=== PATIENT | male | born 1975 | race African-American/Black ===

== ENCOUNTER 2017-08-10 12:49 | Emergency (ER) | payer BC ==
[~2017-08-10] VITALS: Ht 190.5 cm; Wt 81.6 kg
[~2017-08-10 12:49] MED LIST: NKM
[2017-08-10 13:00] VITALS: BP 135/78
[2017-08-10] MEDS ORDERED: NS 55ml IV ONE (13:03)
--- NOTE | 2017-08-10 13:10 | Emergency Room Report ---
History of Present Illness General Chief Complaint: Abdominal Pain Source: Patient, Medical Record (CARMEN DANIEL D.O.) Present Illness HPI Patient presents with left upper abdominal pain Reports he has a history of pancreatitis i do remember the patient well He has been doing well as an outpatient however seems to have increased pain over the past 2 days Denies any chest pain or shortness of breath Patient has had increased nausea vomiting Pain is 8/10 denies any fall or trauma (CARMEN DANIEL D.O.) Allergies: Coded Allergies: No Known Allergies (Verified Allergy, Unknown, 06/15/08) Patient History Past Medical History: see triage record Pertinent Family History: none Reviewed Nursing Documentation: PMH: Agreed, PSxH: Agreed (CARMEN DANIEL D.O.) Nursing Documentation-PMH Past Medical History: No History, Except For Hx Cardiac Problems: No Hx Cancer: No Hx Gastrointestinal Problems: Yes - Pancreatitis Hx Neurological Problems: No (CARMEN DANIEL D.O.) Review of Systems All Other Systems: negative except mentioned in HPI (CARMEN DANIEL D.O.) Physical Exam Vital Signs Date Time Temp Pulse Resp B/P (MAP) Pulse Ox O2 Delivery O2 Flow Rate FiO2 08/10/17 12:55 97.9 98 16 155/98 95 Room Air Sp02 EP Interpretation: reviewed, normal General Appearance: mild distress - appears in pain Head: normocephalic, atraumatic Eyes: bilateral eye PERRL, bilateral eye EOMI ENT: normal pharynx, no angioedema Neck: full range of motion, supple Respiratory: chest non-tender, lungs clear Cardiovascular #1: normal peripheral pulses Gastrointestinal: other - Tender diffusely exam is somewhat limited as the patient is uncomfortable, he does have appropriate bowel sounds however and subjectively points to the left upper quadrant, Genitourinary: no CVA tenderness Musculoskeletal: back normal Neurologic: alert, oriented x3, responsive Skin: no rash, warm/dry Lymphatic: no adenopathy (CARMEN DANIEL D.O.) Medical Decision Making Diagnostic Impression: Primary Impression: History of pancreatitis Additional Impression: Abdominal pain ER Course With the history exam and presentation, multiple differentials considered, including but not limited to appendicitis, pancreatitis,gastritis, cholecystitis , diverticulitis (CARMEN DANIEL D.O.) ER Course I received signout from Dr. Daniel 42-year-old, history of chronic pancreatitis, presenting with left upper quadrant abdominal pain Patient states that this is a similar pain to his chronic pancreatitis in the past Abdominal exam significant for mild left upper quadrant tenderness, all other parts of his abdomen is nontender Lipase today is 129 All other labs are unremarkable Patient had received Dilaudid, morphine, Zofran Had developed a mild skin rash in his left chest and left hand Left hand had some mild infiltration, ice is being placed and it is being elevated Will give 25 mg Benadryl and some fluid Patient states that he does not want to be admitted, he just wants to feel better and go home Patient feeling better, will dc home Laboratory Tests Test 08/10/17 13:40 White Blood Count 8.8 K/UL (4.8-10.8) Red Blood Count 5.18 M/UL (4.70-6.10) Hemoglobin 15.5 G/DL (14.2-18.0) Hematocrit 46.6 % (42.0-52.0) Mean Corpuscular Volume 90 FL (80-99) Mean Corpuscular Hemoglobin 30.0 PG (27.0-31.0) Mean Corpuscular Hemoglobin Concent 33.3 G/DL (32.0-36.0) Red Cell Distribution Width 11.9 % (11.6-14.8) Platelet Count 414 K/UL (150-450) Mean Platelet Volume 6.4 FL (6.5-10.1) L Neutrophils (%) (Auto) 71.7 % (45.0-75.0) Lymphocytes (%) (Auto) 21.6 % (20.0-45.0) Monocytes (%) (Auto) 5.1 % (1.0-10.0) Eosinophils (%) (Auto) 0.8 % (0.0-3.0) Basophils (%) (Auto) 0.9 % (0.0-2.0) Sodium Level 140 MMOL/L (136-145) Potassium Level 4.2 MMOL/L (3.5-5.1) Chloride Level 104 MMOL/L (98-107) Carbon Dioxide Level 26 MMOL/L (21-32) Anion Gap 10 mmol/L (5-15) Blood Urea Nitrogen 11 mg/dL (7-18) Creatinine 1.1 MG/DL (0.55-1.30) Estimate Glomerular Filtration Rate > 60 mL/min (>60) Glucose Level 107 MG/DL (74-106) H Calcium Level 9.3 MG/DL (8.5-10.1) Total Bilirubin 0.5 MG/DL (0.2-1.0) Aspartate Amino Transferase (AST) 21 U/L (15-37) Alanine Aminotransferase (ALT) 32 U/L (12-78) Alkaline Phosphatase 57 U/L (46-116) Total Protein 7.9 G/DL (6.4-8.2) Albumin 4.2 G/DL (3.4-5.0) Globulin 3.7 g/dL Albumin/Globulin Ratio 1.1 (1.0-2.7) Lipase 129 U/L (73-393) (Romel Saavedra M.D.) Rhythm Strip Diag. Results EP Interpretation: yes Rate: 77 Rhythm: NSR, no PVC's, no ectopy (CARMEN DANIEL D.O.) Last Vital Signs Date Time Temp Pulse Resp B/P (MAP) Pulse Ox O2 Delivery O2 Flow Rate FiO2 08/10/17 12:55 97.9 98 16 155/98 95 Room Air (CARMEN DANIEL D.O.) Scripts No Active Prescriptions or Reported Meds Referrals: BECKY AMATO (PCP) Patient Instructions: Abdominal Pain, Adult CARMEN DANIEL D.O. Aug 10, 2017 13:10 Romel Saavedra M.D. Aug 10, 2017 14:27
[2017-08-10 13:56] LABS: BASOPHILS % (AUTO) 0.9 % (0.0-2.0); EOSINOPHILS % (AUTO) 0.8 % (0.0-3.0); LYMPHOCYTES % (AUTO) 21.6 % (20.0-45.0); MEAN CORPUSCULAR HGB CONC 33.3 G/DL (32.0-36.0); MEAN CORPUSCULAR VOLUME 90 FL (80-99); MEAN PLATELET VOLUME 6.4 FL (6.5-10.1); MONOCYTES % (AUTO) 5.1 % (1.0-10.0); NEUTROPHILS % (AUTO) 71.7 % (45.0-75.0); PLATELET COUNT 414 K/UL (150-450); RED BLOOD COUNT 5.18 M/UL (4.70-6.10); RED CELL DISTRIBUTION WIDTH 11.9 % (11.6-14.8); WHITE BLOOD COUNT 8.8 K/UL (4.8-10.8)
[2017-08-10 14:06] LABS: ANION GAP 10 mmol/L (5-15); CALCIUM 9.3 MG/DL (8.5-10.1); CARBON DIOXIDE 26 MMOL/L (21-32); CHLORIDE 104 MMOL/L (98-107); CREATININE 1.1 MG/DL (0.55-1.30); GLOMERULAR FILTRATION RATE > 60 mL/min (>60); POTASSIUM 4.2 MMOL/L (3.5-5.1); SODIUM 140 MMOL/L (136-145)
[2017-08-10 14:11] LABS: ALANINE AMINOTRANSFERASE 32 U/L (12-78); ALBUMIN/GLOBULIN RATIO 1.1 (1.0-2.7); ASPARTATE AMINO TRANSFERASE 21 U/L (15-37); LIPASE 129 U/L (73-393); TOTAL PROTEIN 7.9 G/DL (6.4-8.2)
[2017-08-10] MEDS: DiphenhydrAMINE 50mg/ml Inj IVP ONE (14:37)
[2017-08-10 14:47] VITALS: BP 136/67
[2017-08-10] MEDS ORDERED: HYDROmorphone 1mg/ml Carpuject ONE (15:02)
[2017-08-10] MEDS: HYDROmorphone 1 MG, DiphenhydrAMINE 25 MG in NS 55 ML IV ONE (15:15)
[2017-08-10] MEDS: Morphine Sulfate 4mg/ml Inj IVP ONE ×2 (15:35→16:19)
[2017-08-10 16:07] VITALS: BP 136/87
[2017-08-10 16:08] VITALS: BP 136/87
== END 2017-08-10 16:03 | disposition home or self-care (01) ==
LOC: EMR 13:02 → EDBEDREQ 13:41 → EMR 16:03 → CANBEDREQ 16:09
DX: R10.10 Upper abdominal pain, unspecified (principal); Z87.19 Personal history of other diseases of the digestive system
CPT/HCPCS: 36415; 80053; 83690; 85025; 96361; 96374; 96375; 99284; J1170; J1200; J2270; J2405

== ENCOUNTER 2018-09-15 09:02 | Inpatient (IN) | payer BC ==
[~2018-09-15] VITALS: Ht 188 cm; Wt 81.6 kg
[2018-09-15] MEDS ORDERED: Haloperidol Lactate 5 MG in D5W 55 ML IVPB ONE (09:15)
[2018-09-15] MEDS ORDERED: Morphine Sulfate 4mg/ml Inj (IV/IM USE ONLY) IVP ONE ×3 (09:15→13:15)
--- NOTE | 2018-09-15 09:15 | NUR ---
ED Nurse Note: Pt came in from home due to abdominal pain with n/v since this morning around 0400. Active vomitting upon arrival. Pt has hx of Pancreatitis. Emesis was undigested food and phlegm. Last bowel movement was yesterday. Will cont to monitor.
--- NOTE | 2018-09-15 09:22 | NUR ---
ED Nurse Note: Blood drawn and sent to lab. Pt could not produce urine at this time, stated will try again.
--- NOTE | 2018-09-15 09:39 | Emergency Room Report ---
History of Present Illness General Chief Complaint: Abdominal Pain Source: Patient Present Illness HPI Patient is a 43-year-old male who presented after increased abdominal pain. Patient states that he had prior history of chronic pancreatitis. Patient reports having multiple similar episodes in the past. Patient states had previous ERCP. He denies prior history of gallstones. Patient states that he had been having multiple episodes of nausea and vomiting. This is not resolved with hot bath or home medications. He denies any hematemesis or bloody stools. Patient denies any fever. He reports having some episodes of back pain. He states that normally he is followed by Dr. Roque Rosario. Allergies: Coded Allergies: No Known Allergies (Verified Allergy, Unknown, 06/15/08) Patient History Reviewed Nursing Documentation: PMH: Agreed; PSxH: Agreed Nursing Documentation-PM Past Medical History: No History, Except For Hx Cardiac Problems: No Hx Cancer: No Hx Gastrointestinal Problems: Yes - Pancreatitis Hx Neurological Problems: No Physical Exam Vital Signs Date Time Temp Pulse Resp B/P (MAP) Pulse Ox O2 Delivery O2 Flow Rate FiO2 09/15/18 09:11 98.6 63 20 155/93 98 Room Air General Appearance: alert, GCS 15, Chronically Ill Head: normocephalic, atraumatic ENT: hearing grossly normal, normal voice Neck: full range of motion, supple Respiratory: lungs clear, no respiratory distress, speaking full sentences Cardiovascular #1: normal inspection Gastrointestinal: non tender, soft, no mass, other - epigastric tenderness, no mass Musculoskeletal: normal inspection, digits/nails normal, gait/station normal, no calf tenderness Neurologic: normal inspection, alert, oriented x3, responsive, normal gait Psychiatric: normal inspection, judgement/insight normal, mood/affect normal Skin: no rash Medical Decision Making Diagnostic Impression: Primary Impression: Chronic pancreatitis Additional Impression: Abdominal pain ER Course Patient presented for abdominal pain. Differential diagnoses included ischemic bowel, appendicitis, perforated viscus, abdominal aortic aneurysm, inferior myocardial infarction, viral gastroenteritis. because of complexity of patient' s case laboratory testing and imaging studies were ordered. Patient was noted to have prior history of chronic pancreatitis. Patient was noted to have no evidence of elevated lipase at this time. Patient's laboratory testing are essentially unremarkable other than minimally elevated white blood count and mild left shift. Patient does not appear to have a surgical abdomen at this time. Dr. Roque Rosario was contacted for inpatient management and agreed to admit the patient himself rather than Dr. Hernandez. Labs Test 09/15/18 09:30 White Blood Count 11.4 K/UL (4.8-10.8) Red Blood Count 4.97 M/UL (4.70-6.10) Hemoglobin 15.2 G/DL (14.2-18.0) Hematocrit 44.9 % (42.0-52.0) Mean Corpuscular Volume 90 FL (80-99) Mean Corpuscular Hemoglobin 30.7 PG (27.0-31.0) Mean Corpuscular Hemoglobin Concent 33.9 G/DL (32.0-36.0) Red Cell Distribution Width 12.6 % (11.6-14.8) Platelet Count 352 K/UL (150-450) Mean Platelet Volume 6.4 FL (6.5-10.1) Neutrophils (%) (Auto) 83.0 % (45.0-75.0) Lymphocytes (%) (Auto) 12.8 % (20.0-45.0) Monocytes (%) (Auto) 2.9 % (1.0-10.0) Eosinophils (%) (Auto) 0.2 % (0.0-3.0) Basophils (%) (Auto) 1.0 % (0.0-2.0) Prothrombin Time 9.9 SEC (9.30-11.50) Prothromb Time International Ratio 0.9 (0.9-1.1) Activated Partial Thromboplast Time 27 SEC (23-33) Sodium Level 141 MMOL/L (136-145) Potassium Level 3.8 MMOL/L (3.5-5.1) Chloride Level 104 MMOL/L (98-107) Carbon Dioxide Level 28 MMOL/L (21-32) Anion Gap 9 mmol/L (5-15) Blood Urea Nitrogen 10 mg/dL (7-18) Creatinine 1.2 MG/DL (0.55-1.30) Estimat Glomerular Filtration Rate > 60 mL/min (>60) Glucose Level 142 MG/DL (74-106) Calcium Level 9.4 MG/DL (8.5-10.1) Total Bilirubin 0.4 MG/DL (0.2-1.0) Aspartate Amino Transf (AST/SGOT) 19 U/L (15-37) Alanine Aminotransferase (ALT/SGPT) 25 U/L (12-78) Alkaline Phosphatase 69 U/L (46-116) Troponin I 0.000 ng/mL (0.000-0.056) Total Protein 7.9 G/DL (6.4-8.2) Albumin 4.5 G/DL (3.4-5.0) Globulin 3.4 g/dL Albumin/Globulin Ratio 1.3 (1.0-2.7) Lipase 126 U/L (73-393) Last Vital Signs Date Time Temp Pulse Resp B/P (MAP) Pulse Ox O2 Delivery O2 Flow Rate FiO2 09/15/18 09:11 98.6 63 20 155/93 98 Room Air Status: unchanged Disposition: ADMITTED INPATIENT Condition: Serious Scripts Ondansetron (Zofran) 4 Mg Tablet 4 MG ORAL Q6H PRN for Nausea & Vomiting, #30 TAB 0 Refills Prov: Ambrose Lopez MD 09/15/18 Oxycodone/Acetaminophen 5-325* (PERCOCET 5-325 MG TABLET*) 1 Each Tablet 1 TAB ORAL Q4H PRN for For Pain, #15 TAB Prov: Ambrose Lopez MD 09/15/18 Referrals: Roque Rosario MD (PCP) Ambrose Lopez MD Sep 15, 2018 09:39
[2018-09-15 09:44] VITALS: BP 155/93
[2018-09-15] MEDS ORDERED: DiphenhydrAMINE 50mg/ml Inj IVP ONE (09:45)
[2018-09-15 09:59] LABS: EOSINOPHILS % (AUTO) 0.2 % (0.0-3.0); HEMATOCRIT 44.9 % (42.0-52.0); HEMOGLOBIN 15.2 G/DL (14.2-18.0); LYMPHOCYTES % (AUTO) 12.8 % (20.0-45.0); MEAN CORPUSCULAR VOLUME 90 FL (80-99); MONOCYTES % (AUTO) 2.9 % (1.0-10.0); PLATELET COUNT 352 K/UL (150-450); RED BLOOD COUNT 4.97 M/UL (4.70-6.10); RED CELL DISTRIBUTION WIDTH 12.6 % (11.6-14.8); WHITE BLOOD COUNT 11.4 K/UL (4.8-10.8)
[2018-09-15 10:06] LABS: INR 0.9 (0.9-1.1)
[2018-09-15 10:15] LABS: ALANINE AMINOTRANSFERASE 25 U/L (12-78); ALBUMIN 4.5 G/DL (3.4-5.0); ALBUMIN/GLOBULIN RATIO 1.3 (1.0-2.7); ALKALINE PHOSPHATASE 69 U/L (46-116); ANION GAP 9 mmol/L (5-15); ASPARTATE AMINO TRANSFERASE 19 U/L (15-37); BILIRUBIN,TOTAL 0.4 MG/DL (0.2-1.0); BLOOD UREA NITROGEN 10 mg/dL (7-18); CALCIUM 9.4 MG/DL (8.5-10.1); CARBON DIOXIDE 28 MMOL/L (21-32); CHLORIDE 104 MMOL/L (98-107); CREATININE 1.2 MG/DL (0.55-1.30); POTASSIUM 3.8 MMOL/L (3.5-5.1); SODIUM 141 MMOL/L (136-145)
--- NOTE | 2018-09-15 10:31 | NUR ---
ED Nurse Note: Pt could not produce urine at this time, refuses catheter.
[2018-09-15] MEDS ORDERED: Metoclopramide 10mg/2ml Inj IVP ONE (11:00)
--- NOTE | 2018-09-15 11:22 | NUR ---
ED Nurse Note: pt disconnected cardiac cables and walked around the bed. RN instructed pt to stay in the bed due to narcotic meds given earlier.
--- NOTE | 2018-09-15 11:31 | NUR ---
ED Nurse Note: RN notified Dr. Lopez that pt wants more pain meds. no further order at this time.
[2018-09-15] MEDS ORDERED: Ketorolac 30mg Inj IV ONE (11:45)
[2018-09-15 12:17] VITALS: BP 148/87
[2018-09-15] MEDS ORDERED: PERCOCET 5-3251 EACH ORAL (13:05)
[2018-09-15] MEDS ORDERED: ZOFRAN4 MG ORAL (13:05)
[2018-09-15] MEDS ORDERED: HYDROmorphone 1 MG, DiphenhydrAMINE 25 MG in NS 55 ML IV ONE (13:45)
--- NOTE | 2018-09-15 13:45 | NUR ---
ED Nurse Note: Medication needs to be obtained from Pharmacy, not ready at this time.
[2018-09-15 14:45] VITALS: BP 142/75
[2018-09-15 15:34] VITALS: BP 148/79
--- NOTE | 2018-09-15 15:49 | NUR ---
ED Nurse Note: Report given to CATARINA Hernandez at ex [phone]. Pt transfered to room per protocol with all belongings.
--- NOTE | 2018-09-15 16:00 | NUR ---
NURSE NOTES: PATIENT RECEIVED FROM ER VIA GURNEY;AMBULATORY. ALL BELONGINGS ACCOUNTED FOR. OFFERED TO PLACE VALUABLES AND MONEY IN SAFE BUT REFUSED AT THIS TIME. DISCUSSED PLAN OF CARE FOR THIS EVENING. PATIENT ORIENTED TO ROOM. CALL LIGHT WITHIN REACH.PLACED CALL TO MD FOR ADMITTING ORDERS. AWAITING RETURN CALL. PATIENT INFORMED.
--- NOTE | 2018-09-15 16:20 | NUR ---
NURSE NOTES: ADMITTING ORDERS RECEIVED AND CARRIED OUT. ADMISSION COMPLETED.
[2018-09-15] MEDS: D5 1/2NS w/KCl 20mEq 1,000 ML IV SCH (17:20)
--- NOTE | 2018-09-15 19:36 | NUR ---
HAND-OFF: Report given to MARTIN Bryan RN.
--- NOTE | 2018-09-15 19:40 | NUR ---
NURSE NOTES: Received report from Taya ELMORE. Pt in stable condition. On room air. No s/s of distress or discomfort noted. No n/v noted. States will notify me if in pain or if anything changes. Pt resting in bed comfortably. Bed in low and locked position, call light within reach, bedside table within reach. continue to monitor.
[2018-09-15 20:00] VITALS: BP 129/68
[2018-09-16] VITALS: BP 133/70
[2018-09-16] MEDS: D5 1/2NS w/KCl 20mEq 1,000 ML IV SCH ×2 (01:08→08:46)
[2018-09-16 04:00] VITALS: BP 140/65
--- NOTE | 2018-09-16 07:30 | NUR ---
NURSE NOTES: AWAKE/ALERT. PAIN SCAE 03/19. MEDICATED WITH DILAUDID 2MG IV ORDERED. IN NO ACUTE DISTRESS.
--- NOTE | 2018-09-16 07:59 | NUR ---
HAND-OFF: Report given to Ann Marie ELMORE. endorsed plan of care.
[2018-09-16 08:00] VITALS: BP 136/80
[2018-09-16 09:17] LABS: BASOPHILS % (AUTO) 1.3 % (0.0-2.0); EOSINOPHILS % (AUTO) 1.2 % (0.0-3.0); HEMATOCRIT 39.1 % (42.0-52.0); HEMOGLOBIN 13.1 G/DL (14.2-18.0); MEAN CORPUSCULAR VOLUME 91 FL (80-99); MONOCYTES % (AUTO) 7.6 % (1.0-10.0); NEUTROPHILS % (AUTO) 64.9 % (45.0-75.0); PLATELET COUNT 292 K/UL (150-450); RED BLOOD COUNT 4.31 M/UL (4.70-6.10); RED CELL DISTRIBUTION WIDTH 12.7 % (11.6-14.8); WHITE BLOOD COUNT 9.6 K/UL (4.8-10.8)
[2018-09-16 09:39] LABS: ALANINE AMINOTRANSFERASE 19 U/L (12-78); ALBUMIN 3.9 G/DL (3.4-5.0); ALBUMIN/GLOBULIN RATIO 1.2 (1.0-2.7); ALKALINE PHOSPHATASE 55 U/L (46-116); AMYLASE 65 U/L (25-115); ANION GAP 7 mmol/L (5-15); ASPARTATE AMINO TRANSFERASE 16 U/L (15-37); BILIRUBIN,TOTAL 0.5 MG/DL (0.2-1.0); BLOOD UREA NITROGEN 7 mg/dL (7-18); CALCIUM 8.7 MG/DL (8.5-10.1); CARBON DIOXIDE 28 MMOL/L (21-32); CHLORIDE 104 MMOL/L (98-107); POTASSIUM 3.6 MMOL/L (3.5-5.1); SODIUM 139 MMOL/L (136-145)
--- NOTE | 2018-09-16 11:07 | History and Physical ---
History of Present Illness General Date patient seen: Sep 16, 2018 Reason for Hospitalization: Abdominal Pain Present Illness HPI 43-year-old male with hx of chronic pancreatitis, presented to ER with CC of increased abdominal pain, multiple episodes of nausea and vomiting. He denies any hematemesis or bloody stools. He reports having some episodes of back pain. pt is admitted for further work up. Allergies: Coded Allergies: No Known Allergies (Verified Allergy, Unknown, 06/15/08) Medication History Scheduled PRN Ondansetron (Zofran), 4 MG ORAL Q6H PRN for Nausea & Vomiting Oxycodone/Acetaminophen 5-325* (Percocet 5-325 Mg Tablet*), 1 TAB ORAL Q4H PRN for For Pain Patient History Healthcare decision maker N Resuscitation status Full Code Advanced Directive on File Past Medical/Surgical History Past Medical/Surgical History: (1) Chronic pancreatitis (2) Narcotic abuse Family History Family History: Acute pancreatitis Review of Systems All Other Systems: negative except mentioned in HPI Physical Exam General Appearance: WD/WN Lines, tubes and drains: peripheral HEENT: normocephalic, atraumatic Neck: non-tender, supple Respiratory/Chest: chest wall non-tender, lungs clear Cardiovascular/Chest: normal peripheral pulses, normal rate Abdomen: normal bowel sounds, soft Last 24 Hour Vital Signs Date Time Temp Pulse Resp B/P (MAP) Pulse Ox O2 Delivery O2 Flow Rate FiO2 09/16/18 09:21 Room Air 09/16/18 08:34 98.0 09/16/18 08:00 98.6 58 20 136/80 (98) 95 09/16/18 04:00 98.0 57 17 140/65 (90) 95 09/16/18 00:00 98.8 52 16 133/70 (91) 97 09/15/18 21:00 Room Air 09/15/18 20:00 98.7 50 16 129/68 (88) 96 09/15/18 16:14 Room Air 09/15/18 15:50 98.6 72 20 148/79 99 Room Air 09/15/18 15:34 98.6 72 20 148/79 99 Room Air 09/15/18 14:54 98.6 09/15/18 14:45 98.6 69 20 142/75 98 Room Air 09/15/18 13:59 98.6 09/15/18 12:17 98.6 67 17 148/87 99 Room Air Intake and Output 09/15/18 09/16/18 19:00 07:00 Intake Total 6300.0 ml 1375 ml Balance 6300.0 ml 1375 ml IV Total 6300.0 ml 1375 ml # Voids 3 Laboratory Tests Test 09/16/18 08:50 White Blood Count 9.6 K/UL (4.8-10.8) Red Blood Count 4.31 M/UL (4.70-6.10) L Hemoglobin 13.1 G/DL (14.2-18.0) L Hematocrit 39.1 % (42.0-52.0) L Mean Corpuscular Volume 91 FL (80-99) Mean Corpuscular Hemoglobin 30.4 PG (27.0-31.0) Mean Corpuscular Hemoglobin Concent 33.5 G/DL (32.0-36.0) Red Cell Distribution Width 12.7 % (11.6-14.8) Platelet Count 292 K/UL (150-450) Mean Platelet Volume 6.5 FL (6.5-10.1) Neutrophils (%) (Auto) 64.9 % (45.0-75.0) Lymphocytes (%) (Auto) 25.0 % (20.0-45.0) Monocytes (%) (Auto) 7.6 % (1.0-10.0) Eosinophils (%) (Auto) 1.2 % (0.0-3.0) Basophils (%) (Auto) 1.3 % (0.0-2.0) Sodium Level 139 MMOL/L (136-145) Potassium Level 3.6 MMOL/L (3.5-5.1) Chloride Level 104 MMOL/L (98-107) Carbon Dioxide Level 28 MMOL/L (21-32) Anion Gap 7 mmol/L (5-15) Blood Urea Nitrogen 7 mg/dL (7-18) Creatinine 1.0 MG/DL (0.55-1.30) Estimat Glomerular Filtration Rate > 60 mL/min (>60) Glucose Level 113 MG/DL (74-106) H Calcium Level 8.7 MG/DL (8.5-10.1) Total Bilirubin 0.5 MG/DL (0.2-1.0) Aspartate Amino Transf (AST/SGOT) 16 U/L (15-37) Alanine Aminotransferase (ALT/SGPT) 19 U/L (12-78) Alkaline Phosphatase 55 U/L (46-116) Total Protein 7.2 G/DL (6.4-8.2) Albumin 3.9 G/DL (3.4-5.0) Globulin 3.3 g/dL Albumin/Globulin Ratio 1.2 (1.0-2.7) Amylase Level 65 U/L (25-115) Lipase 100 U/L (73-393) Height (Feet): 6 Height (Inches): 2.00 Weight (Pounds): 180 Medications Current Medications Medications (Trade) Dose Ordered Sig/Wood Route PRN Reason Start Time Stop Time Status Last Admin Dose Admin Dextrose/ Electrolytes 1,000 ml @ 125 mls/hr Q8H IV 09/15/18 17:00 10/15/18 16:59 09/16/18 01:08 Hydromorphone HCl (Dilaudid) 2 mg Q2H PRN IVP For Pain 09/15/18 16:15 09/22/18 16:14 09/16/18 08:04 Ondansetron HCl (Zofran) 4 mg Q4H PRN IVP Nausea & Vomiting 09/15/18 16:15 10/15/18 16:14 09/16/18 02:49 Assessment/Plan Problem List: (1) Intractable nausea and vomiting ICD Codes: R11.2 - Nausea with vomiting, unspecified SNOMED: 715684935 (2) Chronic pancreatitis ICD Codes: K86.1 - Other chronic pancreatitis SNOMED: 871950310 Assessment/Plan npo iv fluids GI evaluation symptomatic treatment check amylase and lipase. Syed Lunsford MD Sep 16, 2018 11:07
[2018-09-16] MEDS ORDERED: NS 275ml ONE (11:21)
--- NOTE | 2018-09-16 11:22 | NUR ---
NURSE NOTES: DISCHARGED HOME ACCPD BY FRIEND IN STABLE CONDITION. DC INSTRUCTIONS GIVEN.
--- NOTE | 2018-09-16 12:12 | NUR ---
INSURANCE ALL CLINICALS AND REVIEWS FAXED TO: [facility] TRACK#: [id number] RENTAL AGENT: PND F#: [phone]
--- NOTE | 2018-09-16 14:43 | NUR ---
CASE MANAGEMENT: REVIEW SI: UTI T 98.6 HR 58 RR 20 BP 136/80 SAT 95% ROOM AIR H/H 13.1/39.1 IS: D5 1/2 NS w/KCl 20mEq IVF@125ML/HR ZOFRAN 4MG IV Q4HR PRN DILAUDID 2MG IV Q2HR PRN MED/SURG STATUS DCP: PATIENT IS FROM HOME
--- NOTE | 2018-09-17 14:32 | Discharge Summary ---
Discharge Summary Discharge Summary _ DATE OF ADMISSION: 09/15/2018 DATE OF DISCHARGE: 09/16/2018 DISCHARGED BY: Dr. Lunsford REASON FOR ADMISSION: 43 years old male with past medical history of chronic pancreatitis, presented with abdominal pain. Patient reported multiple episodes of nausea and vomiting along with back pain. Not resolved with hot bath and home medications. Patient reported multiple similar episodes in the past. He had ERCP in the past. He denied any history of gallstones. He denied bloody stool or hematemesis. He denied fever and chills. Upon evaluation vital signs revealed slightly elevated blood pressure 155/93 , no fever. Pulse oximetry was stable on room air. Laboratory workup revealed mild leukocytosis WBC 11.4 , stable hemoglobin hematocrit. Electrolytes were stable , BUN 10 and creatinine 1.2, stable LFT ,lipase 123. Patient admitted for further management. HOSPITAL COURSE: Patient admitted to medical surgical floor. Patient initially was kept n.p.o. and started on the IV fluid. Symptomatic treatment provided. Pain management was addressed. Antiemetics provided as needed. GI prophylaxis started. Repeated lipase within normal limits 100, amylase -85. Mild leukocytosis initially present -resolved. Pain controlled. Patient started on liquid diet and was advanced as tolerated. Patient was able to tolerate diet. Patient was stable for discharge home with outpatient follow-up with primary care provider next week. Due to rapid and unexpected improvement in patient condition, patient was discharged in 1 day. FINAL DIAGNOSES: Chronic pancreatitis Abdominal pain with intractable nausea and vomiting DISCHARGE MEDICATIONS: See Medication Reconciliation list. DISCHARGE INSTRUCTIONS: Patient was discharged home. Outpatient follow-up with primary care provider next week I have been assigned to dictate discharge summary for this account. I was not involved in the patient's management. Patti Mensah NP Sep 17, 2018 14:32
== END 2018-09-16 11:22 | disposition home or self-care (01) | DRG 440 ==
LOC: EMR 09:23 → EDBEDREQ 15:09 → 3E 15:27
DX: K86.1 Other chronic pancreatitis (principal); R10.9 Unspecified abdominal pain; R11.2 Nausea with vomiting, unspecified
CPT/HCPCS: 36415; 80053; 82150; 83690; 84484; 85025; 85610; 85730; 96361; 96365; 96367; 96375; 96376; 99285; J2405; J2765